=== PATIENT | male | born 1965 | race Caucasian/White ===

== ENCOUNTER 2020-07-06 05:58 | Day surgery (SDC) | payer BC ==
[~2020-07-06] VITALS: Ht 167.6 cm; Wt 75.7 kg
[2020-07-06 06:43] VITALS: BP 137/86
[2020-07-06 10:24] VITALS: BP 131/84
== END 2020-07-06 09:40 | disposition home or self-care (01) ==
LOC: DS 05:58 → GI 07:30 → OR 07:30 → GI 08:30 → DS 09:40
PROVIDERS: ATTEND Internal Medicine
DX: Z12.11 Encounter for screening for malignant neoplasm of colon (principal); K57.30 Diverticulosis of large intestine without perforation or abscess without bleeding; F17.290 Nicotine dependence, other tobacco product, uncomplicated; Z20.828 Contact with and (suspected) exposure to other viral communicable diseases; Z83.3 Family history of diabetes mellitus; Z83.49 Family history of other endocrine, nutritional and metabolic diseases
CPT/HCPCS: 45378; J1200; J1610; J2250; J2310; J3010; J3490; U0003-CS